=== PATIENT | male | born 1990 | race Two or more races ===

== ENCOUNTER 2018-06-06 17:39 | Emergency (ER) | payer OTHER ==
[~2018-06-06] VITALS: Ht 170.2 cm; Wt 98.0 kg
[~2018-06-06 17:39] MED LIST: KETO10TA2 PO
== END 2018-06-06 19:48 | disposition home or self-care (01) ==
LOC: ER 17:39
DX: S90.02XA Contusion of left ankle, initial encounter (principal); W10.8XXA Fall (on) (from) other stairs and steps, initial encounter; Y93.89 Activity, other specified; Y92.89 Other specified places as the place of occurrence of the external cause; Y99.8 Other external cause status